=== PATIENT | male | born 1960 | race Caucasian/White ===

== ENCOUNTER 2022-10-16 12:45 | Outpatient (CLI) | payer OTHER, SELFPAY ==
--- NOTE | 2022-10-16 13:00 | MR_ITS ---
[address] [address] Phone:?[phone] Fax:?[phone] Referring Physician Information: Arnulfo Rosas M.D. [address] [facility] [address] Phone:?[phone] Fax:?[phone] Patient:Levon Villegas D.O.B:?1960 Sex:?Male Phone:?[phone] [facility] MRN:?[id number] Exam Date:?10/16/2022 ? EXAM: MRI of the LEFT KNEE, without contrast CLINICAL: Left knee pain. History of prior surgery. Evaluate for medial meniscal tear. COMPARISONS: MRI 09/04/2015. X-rays 10/05/2022. TECHNICAL: MR sequences of the left knee: sagittals: PD, PDFS coronals: PD, T2FS axials: PD, PDFS SEDATION: None. CONTRAST: None. FINDINGS: Ligaments: ACL: Intact and unremarkable. PCL: Intact and unremarkable. MCL: Soft tissue edema about the MCL is likely reactive to the underlying medial meniscal pathology. MCL otherwise appears intact. LCL: Intact and unremarkable. Posterolateral corner: Popliteus, biceps femoris, iliotibial band, and the popliteofibular ligament appear intact. Posteromedial corner: Semimembranosus, pes anserine tendons and posterior oblique ligament appear intact. Extensor mechanism: Patellar tendon: Intact, without tendinopathy. Quadriceps tendon: Intact, without tendinopathy. Retinacula: Medial and lateral retinacula are intact. Fat pads: Unremarkable infrapatellar Hoffa's, quadriceps and prefemoral fat pads. Patellofemoral joint: Patella: Mild chondromalacia similar to prior exam Trochlea: Mild chondromalacia similar to prior exam. Medial compartment: Medial meniscus: There are postoperative changes of prior partial meniscectomy involving the body and posterior horns of the medial meniscus. Complex tearing involving the body segment extending into the undersurface and free edge of the posterior horn is increased compared to prior exam. Horizontal tearing also extends into the junction of the anterior horn, mildly increased compared to prior exam. Medial cartilage: No new chondral defects. Lateral compartment: Lateral meniscus: Complex tearing involving the posterior horn extending into the posterior root is increased compared to prior exam as seen on sagittal series 6 image 17-22. Focal free edge blunting involves the posterior horn on sagittal series 6 image 22 as seen on prior exam. Ill-defined fraying/tearing involving the free edge of the body segment on coronal series 8 image 20-21, mildly increased compared to prior exam. Lateral cartilage: Chondromalacia involving the lateral tibial plateau is similar to prior exam. No new chondral defects. Knee joint: Effusion: Small left knee effusion. Intra-articular bodies:?No convincing bodies identified. Popliteal cyst: None. Bones: No suspicious bone marrow signal alteration or fracture line. IMPRESSION: 1. Postoperative changes of prior partial medial meniscectomy with interval increased tearing of the medial meniscus compared to prior exam as above. 2. Complex tearing involving the posterior horn extending into the posterior root fibers lateral meniscus, increased compared to prior exam. Mild ill-defined fraying/tearing involving the free edge of the body segment lateral meniscus, mildly increased compared to prior exam. 3. Small joint effusion. 4. No new ligamentous injury or fracture. [facility] Electronically signed on 10/17/2022 9:09:00 AM by Jose Eduardo Palomo D.O.
== END 2022-10-16 12:46 | disposition home or self-care (01) ==
PROVIDERS: PCP Family Medicine; Visit Provider Orthopaedic Surgery
DX: M25.562 Pain in left knee (principal); S83.242A Other tear of medial meniscus, current injury, left knee, initial encounter; S83.282A Other tear of lateral meniscus, current injury, left knee, initial encounter; M25.462 Effusion, left knee
CPT/HCPCS: 73721

== ENCOUNTER 2024-05-06 11:37 | Emergency (ER) | payer BC, SELFPAY ==
[2024-05-06 11:58] VITALS: BP 111/70; PULSE 57; RESP 16; TEMP 36.2; O2SAT 94; BMI 35.3
--- NOTE | 2024-05-06 12:17 | CRLHL7_ITS ---
For Patients: As a result of the Century Cures Act, medical imaging exams and procedure reports are released immediately into your electronic medical record. You may view this report before your referring provider. If you have questions, please contact your health care provider. INDICATION: Fall. Acute injury. TECHNIQUE: CT of the head without contrast. Coronal and sagittal reformats are included. COMPARISON: None. FINDINGS: No acute intracranial hemorrhage. No mass effect or midline shift. No hydrocephalus or extra-axial collections. White matter within normal limits for age. No acute osseous abnormalities. Mastoid air cells and paranasal sinuses are clear. Normal soft tissues. IMPRESSION: IMPRESSION: 1. No acute intracranial abnormalities. Please note that all CT scans at this facility use dose modulation, iterative reconstruction, and/or weight-based dosing when appropriate to reduce radiation dose to as low as reasonably achievable. Dictated by Kurt Figueroa MD @ 05/06/2024 1:14:59 PM (Electronically Signed)
--- NOTE | 2024-05-06 12:17 | CRLHL7_ITS ---
For Patients: As a result of the Century Cures Act, medical imaging exams and procedure reports are released immediately into your electronic medical record. You may view this report before your referring provider. If you have questions, please contact your health care provider. INDICATION: Fall. Neck pain. TECHNIQUE: CT of the cervical spine without contrast. Coronal and sagittal reformats are included. COMPARISON: None. FINDINGS: Fractures and other acute findings: None. Hardware: None. Spinal alignment: Within normal limits. Significant cervical spondylosis: Advanced disc degeneration C5-6 and C6-7. Scattered spondylosis without CT visualized high-grade spinal canal or neural foraminal stenosis. Paraspinal soft tissues and imaged lungs: Hypoattenuating lesion within the right thyroid lobe, compatible with a nodule or mass. Thyroid gland atrophy. IMPRESSION: 1. No acute fracture or traumatic malalignment of the cervical spine. Please note that all CT scans at this facility use dose modulation, iterative reconstruction, and/or weight-based dosing when appropriate to reduce radiation dose to as low as reasonably achievable. Dictated by Kurt Figueroa MD @ 05/06/2024 1:18:51 PM (Electronically Signed)
[2024-05-06] MEDS: 0.9 % SODIUM CHLORIDE 500 ML 500 ML IV (12:30)
--- OUTSIDE RECORDS SUMMARY | 2024-05-06 12:30 | XMS_ITS | Clinical Summary ---
Author Organization [employer] [facility] Address [place], [place] [address] Care Team Providers Care Well Reactivator Operator Name Role Phone Unavailable Primary Care Provider Unavailabl e Allergies No known active allergies Medications No known medications Active Problems Problem Noted Date Diagnosed Date Arthritis, hip 01/08/2016 Immunizations Name Administration Dates Next Due Influenza, IIV4 (=>6mos) MDV 04/07/2017 Td (Age >=7 Years) 09/27/2003 Tdap 12/16/2012 Family History Medical History Relation Name Comments Cancer Father lung Relation Name Status Comments Father Social History Tobacco Use Types Packs/Day Years Used Date Smoking Tobacco: Never Smokeless Tobacco: Never Tobacco Cessation:Counseling Given: Yes Alcohol Use Standard Drinks/Week Comments Yes 0 (1 standard drink = 0.6 oz pur e alcohol) 2 drinks per week Social Connections Answer Date Recorded Frequency of Communication with Friends and Fami ly Not on file 10/28/2022 Sex and Gender Information Value Date Recorded Sex Assigned at Not on file Gender Identity Not on file Sexual Orientation Not on file Obstetrics History Last Filed Vital Signs Vital Sign Reading Time Taken Comments Blood Pressure 130/89 10/28/2022 2:46 PM CDT Pulse 65 10/28/2022 2:46 PM CDT Temperature 36.7 ??C (98.1 ??F) 05/18/2017 4:09 PM CS T Respiratory Rate - - Oxygen Saturation 97% 10/28/2022 2:46 PM CDT Inhaled Oxygen Concentration - - Weight 138.3 kg (305 lb) 10/28/2022 2:46 PM CDT Height 188 cm (6' 2.02) 06/15/2017 5:43 PM [employer] DEVELOPMENT ENGINEER Body Mass Index 39.14 06/15/2017 5:43 PM [employer] DEVELOPMENT ENGINEER Plan of Treatment Health Maintenance Due Date Last Done Comments HIV for age 15-65 1976 Hepatitis C screening for age 18-79 1979 Colonoscopy through age 75 2006 Zoster (shingles) series for age 50+ (1 of 2) 2011 Lipids for age 45-75 12/19/2017 12/19/2012 BMI (ht and wt on same day) for age 18+ 06/15/2018 06/15/2017, 05/18/2017, 01/11/2017, Additional history exists Depression screening for age 12+ 06/15/2018 06/15/2017 Tetanus booster 12/16/2022 12/16/2012, 09/27/2003 COVID-19 vaccine series (2023- season) 2024 Influenza for age 50-64 02/20/2024 04/07/2017 Tdap Completed 12/16/2012 Pneumococcal series for age 6-64 Aged Out No longer eligible based on patient's age to complete this topic Procedures Procedure Name Priority Date/Time Associated Diagnosis Comments LIPID PANEL W REFLEX MEASURED LDL Routine 12/19/2012 8:45 AM CDT Routine general medical examination at a health care facility from Last 3 Months or Most Recently Relevant to Health Maintenance Results * (ABNORMAL) LIPID PANEL W REFLEX MEASURED LDL (12/19/2012 8:45 AM CDT) CHOLESTEROL,TOTAL 190 100 - 199 mg/dL 12/19/2012 9:31 AM [facility] TRIGLYCERIDES 67 <150 mg/dL 12/19/2012 9:31 AM [facility] HDL CHOLESTEROL 45 >40 mg/dL 3 9:31 AM [facility] NON-HDL CHOLESTEROL 145(H) <145 mg/dl 12/19/2012 9:31 AM [facility] CHOL/HDL RATIO 4.22 <4.50 12/19/2012 9:31 AM [facility] LDL CHOLESTEROL 132(H) <=130 mg/dL 12/19/2012 9:31 AM [facility] PATIENT STATUS FASTING 12/19/2012 9:[address] [facility] Blood specimen (specimen) BLOOD SPECIMEN / Unknown 12/19/2012 8:45 AM CDT 12/19/2012 8:45 AM CDT Madan Fonseca MD CHEMISTRY [facility] [address] [place] [address] from Last 3 Months or Most Recently Relevant to Health Maintenance Guarantor Name Account Type Relation to Patient Date of Phone Billing Address JorgerichiefelaHelder Personal/Family Self 1960 [address] [place] [address]
--- NOTE | 2024-05-06 12:33 | ED.GENADULT ---
HPI - General Adult General Chief complaint: Laceration/Wound Stated complaint: fainted, left hand and head lac Time Seen by Provider: 05/06/24 11:49 History of Present Illness HPI narrative: Patient is a 64-year-old gentleman who was cutting branches with a chainsaw when he nicked the anterior surface of his left wrist. He did not appear to hit the radial or ulnar artery and had full function of his hand. He was able to get the bleeding under control immediately and walked home. Once he got home he told his about the injury in began washing the wound at which time he lost consciousness. His helped him to the ground but he did scrape the anterior portion of his head. Patient was incontinent of urine. He did not lose any other bodily functions. She was able to get him up and he remained oriented. They present to the emergency room with abrasion on his scalp as well as laceration on the left anterior wrist. He has no other neurologic complaints and no chest pain no shortness of breath. Related Data Previous Rx's ?Medication ?Instructions ?Recorded oxycodone-acetaminophen 5 mg-325 1 - 2 tab PO Q4-6H PRN pain #5 tabs 11/03/22 mg tablet (Percocet) Allergies Allergy/AdvReac Type Severity Reaction Status Date / Time No Known Drug Allergies Allergy Verified 10/21/22 14:59 Review of Systems Status of ROS: Reports: 10 or more systems reviewed and unremarkable except as noted in History and below [facility] Surgical History History of meniscectomy of left knee (11/03/22) ?Z98.890 - Other specified postprocedural states (ICD-10) S/P arthroscopy of right shoulder (04/17/93) ?Z98.890 - Other specified postprocedural states (ICD-10) S/P left knee arthroscopy (10/31/13) ?Z98.890 - Other specified postprocedural states (ICD-10) 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) ?Z96.641 - Presence of right artificial hip joint (ICD-10) 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 EYES: No scleral icterus. ENT: Tympanic membranes and oropharynx normal. THYROID: no thyroid nodules or thyromegaly. LYMPH: No supraclavicular or cervical lymphadenopathy. SKIN: Laceration approximately 2 cm in length on the left anterior wrist. No vascular or neural compromise. EXT: No dependent lower extremity pedal edema. HEART: Regular rate and rhythm with no murmurs, rubs, or gallops. LUNGS: Clear to auscultation bilaterally with no crackles or wheezes. ABD: Soft, non tender, non distended. PSYCH: Good eye contact, speech is not pressured. Neurologic cranial nerves 2-12 grossly intact no focal defects. Const: Vital Signs, click to edit/add: Vital Signs - 24 hr 05/06/24 11:58 Temperature 97.1 F L Pulse Rate [Right Radial] 57 L Respiratory Rate 16 Blood Pressure [Ri ght Upper Arm] 111/70 Pulse Oximetry 94 Oxygen Delivery Me thod Room Air Course Course ED Course: Patient appears to have had a vasovagal syncopal event following laceration. This time he is medically stable but will give a small saline bolus. CBC comprehensive metabolic panel troponin EKG CT head and neck. Will plan to clean the wound and close the laceration. Vital Signs Vital signs: Initial Vital Signs Temperature 97.1 F L 05/06/24 11:58 Temperature Source Temporal Artery Scan 05/06/24 11:58 Pulse Rate 57 L 05/06/24 11:58 Pulse Rhythm Regular 05/06/24 11:58 Respiratory Rate 16 05/06/24 11:58 Blood Pressure 111/70 05/06/24 11:58 Blood Pressure Mean 83 05/06/24 11:58 Pulse Oximetry 94 05/06/24 11:58 Oxygen Delivery Method Room Air 05/06/24 11:58 Vital Signs Temperature 97.1 F L 05/06/24 11:58 Pulse Rate 57 L 05/06/24 11:58 Respiratory Rate 16 05/06/24 11:58 Blood Pressure 111/70 05/06/24 11:58 Pulse Oximetry 94 05/06/24 11:58 Oxygen Delivery Method Room Air 05/06/24 11:58 Temperature 97.1 F L 05/06/24 11:58 Pulse Rate 57 L 05/06/24 11:58 Respiratory Rate 16 05/06/24 11:58 Blood Pressure 111/70 05/06/24 11:58 Pulse Oximetry 94 05/06/24 11:58 Oxygen Delivery Method Room Air 05/06/24 11:58 Medical Decision Making MDM Narrative Medical decision making narrative: Patient is a 64-year-old gentleman who had a syncopal episode after cutting his wrist Biaxin with a chainsaw. This appears to be vasovagal syncope. His workup including CT of the head cervical spine CBC comprehensive metabolic panel troponin EKG are all normal. We did update his tetanus shot. After explaining the risks benefits of the procedure to close the lacerations on his left wrist with 3 interrupted 3-0 Ethilon sutures. One 1st and xylocaine was used for anesthesia. He is instructed on wound care and will follow-up with his primary physician as needed. Lab Data Labs: Lab Results 05/06/24 Range/Units 12:47 WBC 5.22 (4.50-11.00) K/uL RBC 5.01 (4.30-5.90) m/uL Hgb 15.0 (13.5-17.5) gm/dL Hct 45.8 (37.0-53.0) % MCV 91 (80-100) fL MCH 30 (26-34) pg MCHC 33 (32-36) gm/dL RDW Coeff of Archana 11.8 (11.5-15.5) % Plt Count 146 (140-440) K/uL Neut % (Auto) 63.4 (42.0-72.0) % Lymph % (Auto) 26.8 (20-44) % Clinch % (Auto) 8.4 (0.0-11.0) % Eos % (Auto) 0.6 (0.0-7.0) % Baso % (Auto) 0.6 (0.0-3.0) % Neut # (Auto) 3.31 (1.7-7.0) K/uL Lymph # (Auto) 1.40 (0.90-2.90) K/uL Clinch # (Auto) 0.40 (0.00-0.90) K/UL Eos # (Auto) 0.03 (0.00-0.50) K/uL Baso # (Auto) 0.03 (0.00-0.30) K/uL Abs Immat Gran (auto) 0.01 (0.00-0.30) K/uL Imm/Tot Granulo (auto) 0.2 % Sodium 138 (135-149) mmol/L Potassium 4.4 (3.6-5.1) mmol/L Chloride 105 (96-114) mmol/L Carbon Dioxide 26 (20-32) mmol/L Anion Gap 7 (7-15) mEq/L BUN 24 (7-30) mg/dL Creatinine 1.3 (0.5-1.5) mg/dL Estimated Creat Clear 67.62 Estimated GFR 62 ml/min Glucose 105 (60-115) mg/dL Calcium 9.4 (8.4-10.6) mg/dL Total Bilirubin 0.5 (0.1-1.5) mg/dL AST 29 (12-35) U/L ALT 15 (4-50) U/L Alkaline Phosphatase 69 (40-150) U/L Troponin I < 0.01 L (0.01-0.04) ng/mL Total Protein 6.8 (6.0-8.3) g/dL Albumin 4.2 (3.3-5.0) g/dL Discharge Plan Discharge Clinical Impression: Syncope, Laceration Instructions: Laceration (ED), Syncope (ED) Additional Instructions: Wound care as discussed. Suture removal in 9-10 days Report any changes in symptoms. Activity Level: No Restrictions Discharge Diet: Regular Prescriptions: No Action oxycodone-acetaminophen [Percocet] 5-325 mg tablet 1 - 2 tab PO Q4-6H PRN (Reason: pain) Qty: 5 0RF Follow Up/Referrals: Madan Fonseca MD [Primary Care Provider] - Stand Alone Forms: [facility] Info Instructions
[2024-05-06 12:54] LABS: Basophils Absolute Auto 0.03 K/uL (0.00-0.30); Basophils Percent Auto 0.6 % (0.0-3.0); Eosinophils Absolute Auto 0.03 K/uL (0.00-0.50); Eosinophils Percent Auto 0.6 % (0.0-7.0); Hematocrit 45.8 % (37.0-53.0); Immature Granulocytes Abs Auto 0.01 K/uL (0.00-0.30); Immature Granulocytes Pct Auto 0.2 %; Lymphocytes Percent Auto 26.8 % (20-44); Mean Corpuscular HGB Conc 33 gm/dL (32-36); Mean Corpuscular Hemoglobin 30 pg (26-34); Mean Corpuscular Volume 91 fL (80-100); Monocytes Percent Auto 8.4 % (0.0-11.0); Neutrophils Absolute Auto 3.31 K/uL (1.7-7.0); Neutrophils Percent Auto 63.4 % (42.0-72.0); Platelet Count* 146 K/uL (140-440); RDW Coefficient of Variation % 11.8 % (11.5-15.5); Red Blood Count 5.01 m/uL (4.30-5.90); White Blood Count* 5.22 K/uL (4.50-11.00)
[2024-05-06 13:12] LABS: Slide Review Reflex No
[2024-05-06 13:14] LABS: Albumin* 4.2 g/dL (3.3-5.0); Chloride* 105 mmol/L (96-114)
[2024-05-06 13:15] LABS: Potassium* 4.4 mmol/L (3.6-5.1); Sodium* 138 mmol/L (135-149)
[2024-05-06 13:17] LABS: Anion Gap 7 mEq/L (7-15); Aspartate Amino Transferase* 29 U/L (12-35); Bilirubin Total* 0.5 mg/dL (0.1-1.5); Carbon Dioxide* 26 mmol/L (20-32); Creatinine* 1.3 mg/dL (0.5-1.5); Est. Creatinine Clearance* 67.62; Estimated Glomerular Filt Rate 62 ml/min; Total Protein* 6.8 g/dL (6.0-8.3)
[2024-05-06 13:18] LABS: Alanine Aminotransferase* 15 U/L (4-50); Alkaline Phosphatase* 69 U/L (40-150); Blood Urea Nitrogen* 24 mg/dL (7-30); Calcium* 9.4 mg/dL (8.4-10.6); Glucose* 105 mg/dL (60-115)
[2024-05-06 13:32] LABS: Troponin I* < 0.01 ng/mL (0.01-0.04)
[2024-05-06] MEDS: TETANUS/DIPHTH/PERTUSSIS 0.5 ML SYRINGE IM (13:49)
[2024-05-06] MEDS: lidocaine HCL 2 % MULTIDOSE 20 ML VIAL 4 ML INJECTION (13:58)
--- NOTE | 2024-05-06 13:59 | ED.NURSE ---
Pt left wrist cleansed with soap and water by nursing informatics specialist. Pt tolerated well.
--- NOTE | 2024-05-06 14:00 | ED.NURSE ---
Pt left wrist cleansed with bacitracin, bandage applied.
== END 2024-05-06 14:01 | disposition home or self-care (01) ==
LOC: ED 12:28
PROVIDERS: Emergency Provider Internal Medicine; PCP Family Medicine
DX: S61.512A Laceration without foreign body of left wrist, initial encounter (principal); W29.3XXA Contact with powered garden and outdoor hand tools and machinery, initial encounter
CPT/HCPCS: 12001; 36415; 70450; 72125; 80053; 84484; 85025; 90471; 90715; 93005; 99283; J7030